=== PATIENT | male | born 1990 | race Hispanic/Latino ===

== ENCOUNTER 2019-01-21 10:17 | Outpatient (CLI) | payer OTHER | END 2019-01-21 10:18 | disposition home or self-care (01) | LOC: C.LAB 10:17 | DX: R19.5 Other fecal abnormalities (principal); J32.9 Chronic sinusitis, unspecified; K29.60 Other gastritis without bleeding; R59.1 Generalized enlarged lymph nodes ==

== ENCOUNTER 2019-01-24 14:41 | Outpatient (CLI) | payer OTHER | END 2019-01-24 14:42 | disposition home or self-care (01) | LOC: C.CTH 14:41 | DX: R59.1 Generalized enlarged lymph nodes (principal); J32.9 Chronic sinusitis, unspecified ==

== ENCOUNTER 2019-02-07 08:27 | Outpatient (CLI) | payer OTHER | END 2019-02-07 08:28 | disposition home or self-care (01) | LOC: C.USIC 08:27 | DX: K29.60 Other gastritis without bleeding (principal); R74.8 Abnormal levels of other serum enzymes; E83.52 Hypercalcemia ==